=== PATIENT | female | born 1995 | race Caucasian/White ===

== ENCOUNTER 2016-05-22 10:15 | Emergency (ER) | payer OTHER ==
[~2016-05-22 10:15] MED LIST: NORCO 5-325 TA1 EACH PO
[2016-05-22 11:50] LABS: HEMOGLOBIN 13.2 gm/dl (12.3-15.3); RED BLOOD COUNT 4.81 M/UL (4.00-5.10); WHITE BLOOD COUNT 5.4 K/UL (4.5-11.0)
[2016-05-22 12:10] LABS: BUN/CREATININE RATIO 12 (0-10)
[2016-07-05] MEDS ORDERED: SYNTHROID PO (12:17)
[2016-07-05] MEDS ORDERED: NORCO 5-325 TA1 EACH PO (14:00)
[2016-07-05] MEDS ORDERED: IBUPROFEN600 MG PO (14:01)
[2016-07-05] MEDS ORDERED: STOOL SOFTENER100 M1 PO (14:02)
== END 2016-05-22 15:46 | disposition home or self-care (01) ==
LOC: ER1 10:15
PROVIDERS: Physician Assistant Medical
DX: R10.31 Right lower quadrant pain (principal); M54.5 Low back pain; E07.9 Disorder of thyroid, unspecified; Z79.899 Other long term (current) drug therapy
CPT/HCPCS: 36415; 76830; 80053; 81001; 82150; 83690; 84703; 85025; 96374; 99284; J2405; J7030; J7050; Q9962

== ENCOUNTER → 2016-07-05 | Outpatient (CLI) | payer OTHER ==
[~2016-07-05] MED LIST changes: +IBUPROFEN600 MG PO; +STOOL SOFTENER100 M1 PO; +SYNTHROID PO
== END ==
LOC: LAB 08:09
DX: O20.0 Threatened abortion (principal)
CPT/HCPCS: 36415; 81001; 84702; 85025; 86850; 86900; 86901; J2250; J2795; J3010; J7120

== ENCOUNTER 2020-08-17 22:55 | Emergency (ER) | payer OTHER ==
[~2020-08-17 22:55] MED LIST changes: +K-DUR TAB 20 M20 MEQ PO; +NAPROSYN500 MG PO; +ZOFRAN4 MG PO
[2020-08-18] MEDS ORDERED: LODINE CAP 300300 MG PO (02:18)
== END 2020-08-18 02:32 | disposition home or self-care (01) ==
LOC: ER1 22:55
DX: T24.201A Burn of second degree of unspecified site of right lower limb, except ankle and foot, initial encounter (principal); L55.0 Sunburn of first degree
CPT/HCPCS: 99282

== ENCOUNTER 2021-01-15 08:51 | Emergency (ER) | payer OTHER ==
[~2021-01-15 08:51] MED LIST changes: +LODINE CAP 300300 MG PO
[2021-01-15 09:56] LABS: HEMOGLOBIN 13.2 gm/dl (12.3-15.3); RED BLOOD COUNT 4.47 M/UL (4.00-5.10); WHITE BLOOD COUNT 8.9 K/UL (4.5-11.0)
[2021-01-15 10:18] LABS: BUN/CREATININE RATIO 19 (0-10)
== END 2021-01-15 13:05 | disposition home or self-care (01) ==
LOC: ER1 08:51
PROVIDERS: Physician Assistant
DX: R10.31 Right lower quadrant pain (principal); Z90.49 Acquired absence of other specified parts of digestive tract; F17.210 Nicotine dependence, cigarettes, uncomplicated
CPT/HCPCS: 80053; 81001; 84703; 85025; 96374; 96375; 99284; J2270; J2405; Q9967

== ENCOUNTER 2021-03-06 18:18 | Emergency (ER) | payer OTHER | END 2021-03-06 19:00 | disposition left against medical advice (07) | LOC: ER1 18:18 | DX: Z53.21 Procedure and treatment not carried out due to patient leaving prior to being seen by health care provider (principal) ==

== ENCOUNTER 2021-05-08 17:37 | Emergency (ER) | payer OTHER ==
[2021-05-08 18:54] LABS: RED BLOOD COUNT 4.79 M/UL (4.00-5.10); WHITE BLOOD COUNT 9.4 K/UL (4.5-11.0)
[2021-05-08 19:23] LABS: BUN/CREATININE RATIO 11 (0-10)
== END 2021-05-08 22:01 | disposition home or self-care (01) ==
LOC: ER1 17:37
PROVIDERS: Emergency Medicine
DX: R07.89 Other chest pain (principal)
CPT/HCPCS: 71045; 80053; 82550; 82553; 84439; 84443; 84484; 85025; 85379; 93005; 99285

== ENCOUNTER 2021-08-31 12:31 | Emergency (ER) | payer OTHER ==
[2021-08-31 12:52] LABS: HEMOGLOBIN 14.3 gm/dl (12.3-15.3); RED BLOOD COUNT 4.81 M/UL (4.00-5.10); WHITE BLOOD COUNT 14.5 K/UL (4.5-11.0)
[2021-08-31 13:13] LABS: BUN/CREATININE RATIO 15 (0-10)
[2021-08-31] MEDS ORDERED: OMNICEF 300 MG300 MG PO (15:59)
[2021-08-31] MEDS ORDERED: PYRIDIUM200 MG PO (15:59)
[2021-08-31] MEDS ORDERED: NAPROXEN500 MG PO (15:59)
[2021-08-31] MEDS ORDERED: ZOFRAN 4 MG TAB4 MG PO (15:59)
== END 2021-08-31 16:09 | disposition home or self-care (01) ==
LOC: ER1 12:31
PROVIDERS: Physician Assistant Medical
DX: N10 Acute pyelonephritis (principal); F17.210 Nicotine dependence, cigarettes, uncomplicated; Z87.442 Personal history of urinary calculi
CPT/HCPCS: 80053; 81001; 85025; 87077; 87086; 87186; 96374; 96375; 99284; J0696; J1885; J2405